=== PATIENT | male | born 1995 | race African-American/Black ===

== ENCOUNTER 2018-04-26 13:53 | Emergency (ER) | payer SELFPAY ==
[2018-04-26 14:33] VITALS: BP 135/78
--- NOTE | 2018-04-26 14:47 | ER Document Report ---
ED Medical Screen (RME) <FRANCESCA PARK - Last Filed: 04/26/18 18:09> <ANNIE ALFARO - Last Filed: 04/26/18 18:17> - General Chief Complaint: Fainting Stated Complaint: SYNCOPAL EPISODE,NAUSEA Time Seen by Provider: 04/26/18 14:42 Primary Care Provider: [facility] [Outside] - Follow up as needed Notes: History of Present Illness Chief Complaint: Depressed [ 22 years old male moved from [place] a week ago, presents today with general malaise not feeling good, crying, feeling depressed. He has a history of depression and anxiety has not been taking any medications. Also states he is unable to hold anything down and does not feel like eating.] [No] suicidal ideation [No] homicidal ideation [No] acute psychotic features History obtained from [patient] Symptoms began: [past few days] Onset: [ gradual] Timing: [ constant] Quality: [ ] Intensity: [ moderate to severe] Location: [ generalized] Radiation: [none] Migration: [none] Aggravating factors: [none] Relieving factors: [none] Review of Systems: All other systems negative as reviewed. CONSTITUTIONAL No Fever. EYES No eye pain. ENT No sore throat CARDIOVASCULAR No chest pain. RESPIRATORY No SOB. GI No abdominal pain, no vomiting, no diarrhea. GENITOURINARY No dysuria. SKIN No rash. NEUROLOGIC No headache. MUSCULOSKELETAL No back pain. Physical Exam CONSTITUTIONAL Vital signs reviewed, Patient has normal respiratory rate, Well appearing, Patient appears comfortable, normal stature. HEAD Atraumatic, Normocephalic. EYES Eyes are normal to inspection. ENT Ears normal to inspection, Nose examination normal. NECK No jugular venous distention. RESPIRATORY CHEST Breath sounds normal, No respiratory distress. CARDIOVASCULAR RRR, No murmurs, Normal S1 S2, No rub, No gallop. ABDOMEN Abdomen is nontender, No masses, Bowel sounds normal, No distension, No peritoneal signs. BACK Normal inspection. UPPER EXTREMITY Inspection normal. LOWER EXTREMITY Inspection sebas. NEURO No focal motor deficits. SKIN Skin is warm, Skin is dry, Skin is normal color. PSYCHIATRIC [Normal] affect.[Depressed anxious and crying ] (ANNIE ALFARO) - HPI Notes: 04/26/18 18:16 Dictated (ANNIE ALFARO) - Related Data Allergies/Adverse Reactions: Penicillins Allergy (Verified 04/26/18 13:55) Past Medical History - Social History Cigarette use (# per day): No Chew tobacco use (# tins/day): No Frequency of alcohol use: None Drug Abuse: None Lives with: Family Family history: Reviewed & Not Pertinent <ANNIE ALFARO - Last Filed: 04/26/18 18:17> Review of Systems <ANNIE ALFARO - Last Filed: 04/26/18 18:17> - Review of Systems Notes: Dictated (ANNIE ALFARO) Physical Exam <ANNIE ALFARO - Last Filed: 04/26/18 18:17> - Vital signs Vitals: Temp Pulse Resp BP Pulse Ox 98.8 F 70 16 135/78 H 100 04/26/18 14:32 04/26/18 14:32 04/26/18 14:32 04/26/18 14:32 04/26/18 14:32 - Notes Notes: Dictated (ANNIE ALFARO) Course - Laboratory Result Diagrams: 04/26/18 15:05 04/26/18 15:05 <FRANCESCA PARK - Last Filed: 04/26/18 18:09> - Laboratory Result Diagrams: 04/26/18 15:05 04/26/18 15:05 <ANNIE ALFARO - Last Filed: 04/26/18 18:17> - Re-evaluation Re-evalutation: 04/26/18 18:16 Was evaluated by my psych department (ANNIE ALFARO) - Vital Signs Vital signs: Temp Pulse Resp BP Pulse Ox 98.8 F 70 16 135/78 H 100 04/26/18 14:32 04/26/18 14:32 04/26/18 14:32 04/26/18 14:32 04/26/18 14:32 - Laboratory Laboratory results interpreted by me: 04/26/18 15:05 Calcium 10.4 H Total Bilirubin 1.7 H Albumin 5.1 H Doctor's Discharge <FRANCESCA PARK - Last Filed: 04/26/18 18:09> <ANNIE ALFARO - Last Filed: 04/26/18 18:17> - Discharge Clinical Impression: Anxiety Depression Qualifiers: Depression Type: unspecified Qualified Code(s): F32.9 - Major depressive disorder, single episode, unspecified Condition: Fair Disposition: HOME, SELF-CARE Additional Instructions: You have been evaluated both medical and behavioral health teams have been deemed appropriate for discharge. You have been provided prescription for BuSpar 5 mg twice daily; please take as directed. You have been provided resource list of area providers including mobile crisis contact information. Anxiety The physician feels that some of your health problems are being caused by anxiety. Anxiety affects your health in many ways. Anxiety alone can cause palpitations, sweats, chest pains, abdominal pains, shortness of breath, and headaches. It contributes to ulcer disease, high blood pressure, irritable bowel syndrome, and has been shown to cause flare-ups of many other diseases. Anxiety is not a simple disorder to treat. If the anxiety is due to recent life stresses, you may simply need time to "work through" the changes. If the anxiety is due to an underlying unhappiness with yourself or due to psychiatric disturbance, professional help will be needed. Your physician can refer you for further help if needed. Anti-anxiety medication is occasionally given if the stress is acute or if you are having trouble sleeping. Chronic or frequent use of these medications is not a good idea because the body becomes reliant on it, preventing you from dealing with life's normal stresses. DEPRESSION: Your evaluation reveals that you have mental depression. While symptoms may be vague, they often include disturbance of sleep, fatigue, loss of appetite, and general loss of interest in life. While depression may be a side effect of drugs, or a reaction to a major change in your life, many cases have no known cause. If depression is acute, and related to a major loss in your life, you can expect it to clear completely with time. If you have been depressed a long time, are prone to repeated bouts of depression or low mood, or have been thinking of suicide, get help. Depression can be treated with anti-depressant medication and counselling. Long-term depression will often take a few weeks to clear, even with appropriate medication. Follow-up care is important. FOLLOW-UP CARE: If you have been referred to a physician for follow-up care, call the physicians office for an appointment as you were instructed or within the next two days.~ If you experience worsening or a significant change in your symptoms, notify the physician immediately or return to the Emergency Department at any time for re-evaluation. Prescriptions: Buspirone HCl [Buspar 5 mg Tablet] 1 tab PO BID #60 tab Referrals: [facility] [Outside] - Follow up as needed
[2018-04-26 15:24] LABS: ABSOLUTE BASOPHILS # (AUTO) 0.1 10^3/uL (0.0-0.2); ABSOLUTE LYMPHOCYTES (AUTO) 1.6 10^3/uL (0.5-4.7); ABSOLUTE MONOCYTES (AUTO) 0.5 10^3/uL (0.1-1.4); ABSOLUTE NEUT (AUTO) 2.7 10^3/uL (1.7-8.2); BASOPHILS % (AUTO) 1.4 % (0-2); EOSINOPHILS % (AUTO) 0.1 % (0-6); HEMATOCRIT 41.1 % (37.9-51.0); LYMPHOCYTES % (AUTO) 33.7 % (13-45); MEAN CORPUSCULAR HEMOGLOBIN 30.5 pg (27.0-33.4); MEAN CORPUSCULAR HGB CONC 34.1 g/dL (32.0-36.0); MEAN CORPUSCULAR VOLUME 89 fl (80-97); MONOCYTES % (AUTO) 9.7 % (3-13); PLATELET COUNT 218 10^3/uL (150-450); RED BLOOD COUNT 4.61 10^6/uL (4.35-5.55); RED CELL DISTRIBUTION WIDTH 13.3 % (11.5-14.0); SEGMENTED NEUTROPHILS % (AUTO) 55.1 % (42-78); TOTAL CELLS COUNTED % (AUTO) 100 %; WHITE BLOOD COUNT 4.9 10^3/uL (4.0-10.5)
[2018-04-26 15:33] LABS: ALANINE AMINOTRANSFERASE 22 U/L (21-72); ALBUMIN 5.1 g/dL (3.5-5.0); ALKALINE PHOSPHATASE 72 U/L (38-126); ANION GAP 13 (5-19); ASPARTATE AMINO TRANSFERASE 43 U/L (17-59); BILIRUBIN,DIRECT 0.2 mg/dL (0.0-0.4); BILIRUBIN,TOTAL 1.7 mg/dL (0.2-1.3); BLOOD UREA NITROGEN 10 mg/dL (7-20); CALCIUM 10.4 mg/dL (8.4-10.2); CARBON DIOXIDE 26 mmol/L (22-30); CHLORIDE 104 mmol/L (98-107); GLUCOSE 97 mg/dL (75-110); POTASSIUM 4.2 mmol/L (3.6-5.0); SODIUM 142.8 mmol/L (137-145); TOTAL PROTEIN 8.2 g/dL (6.3-8.2)
--- NOTE | 2018-04-26 18:09 | PSYCHOLOGICAL NOTE ---
Psych Note - Psych Note Date seen by psych provider: 04/26/18 Time seen by psych provider: 17:45 Psych Note: Reason for Consult: anxiety and depression Presented to [facility] ED for medical concerns of passing out. He reports that he laid on the floor for an undetermined time and feels that it may be because he is having difficulty eating because he gets nauseous. He reports that this happens anytime he has "anxiety attacks." He reports that he was previously on Seroquel and Yvette was diagnosed with depression anxiety in [place] just this past July. He reports that this is the first time he ever received mental health diagnosis or took medications. He states that in July he attempted to kill himself however the sister called him and he was inpatient psychiatric treatment for 1 week. He reports that he is "much better now but when I'm lonely I start to have a panic attack." He reports that he moved to [place] approximately 1-1/2 weeks ago and attempted to go to urgent care this morning to try to identify outpatient mental health resources. He states that he does not currently have a car so is made getting a provider more difficult. He continued to disclose that he was incarcerated back in August for probation violation however was still not given in his medication so has been off of it for a while. He reports that he currently was living with his sister however today when he passed out attempted to contact his sister unsuccessfully so packed up his bags to stay with a friend. Clinician conducted psychoeducation with coping skills and identifying triggers. Patient confirms he is able to afford medications that are more inexpensive i.e. less than $20 a month. Patient is alert and orientated to person, place, time and circumstance. Mood is dysphoric with blunted affect. Patient denies suicidal homicidal ideation. Delusions are absent is congruent with an intact reality based presentation i.e. organized and linear thought process. Eye contact is well-maintained. Conversational speech is within normal rate, tone and prosody. Intellectual abilities appear to be within the average range. Attention and concentration are good. Insight, judgment, impulse control are fair. Medication recommendations per [facility]'s contracted psychiatrist Dr. Samuel MCMULLEN are as follows BuSpar 5 mg twice daily 300.00 (F41.9) unspecified anxiety disorder 311 (F32.9) unspecified depressive disorder Impression\\plan: Patient is cleared from acute psychiatric services. Patient does not meet IVC criteria per [place] GS 122C. Patient discloses that he has been having difficulty eating because of nausea stemming from anxiety. He reports th at he was on medications however is been off for a while and was unable to afford more expensive medications. Patient denies thoughts of wanting to harm himself and reports that he is feeling "much better" in comparison to when he attempted to harm himself back in July. He reports that he would just like assistance in obtaining local resources as he is new to [place]. He discloses he would be able to afford medications if it was less than $20 a month. Clinician provided local resource list of area providers including mobile crisis contact information. Dr. Lindo was consulted and the care management of this patient; attending physicians in agreement with recommendations and disposition.
== END 2018-04-26 18:34 | disposition home or self-care (01) ==
LOC: ER 13:53
DX: F41.9 Anxiety disorder, unspecified (principal); F32.9 Major depressive disorder, single episode, unspecified; R11.0 Nausea; R55 Syncope and collapse
CPT/HCPCS: 36415; 80053; 85025; 99284